=== PATIENT | female | born 1965 | race Hispanic/Latino ===

== ENCOUNTER 2018-04-25 13:40 | Emergency (ER) | payer BC ==
[2018-04-25 13:50] VITALS: BMI 22.6
[2018-04-25 13:54] VITALS: RESP 18; TEMP 98.2
--- NOTE | 2018-04-25 15:00 | ED PDOC ---
Arrival/HPI - General Chief Complaint: Dizziness/Lightheaded Time Seen by Provider: 04/25/18 13:47 Historian: Patient - History of Present Illness Narrative History of Present Illness (Text): 04/25/18 15:03 A 52 year old female, whose past medical history includes, x 2, menopause, anxiety and depression, presents to the emergency department complaining of dizziness starting earlier today. Patient reports she was in [employer] when she suddenly began experiencing a room-spinning sensation dizziness. Patient denies any chest pain, shortness of breath, or any other complaints at this time. Also, patient mentions she takes Prozac and Klonopin. No PMD Past Medical History - Provider Review Nursing Documentation Reviewed: Yes - Infectious Disease Hx of Infectious Diseases: None - Reproductive Menopause: Yes Currently : No - Psychiatric Hx Anxiety: Yes Hx Depression: Yes Hx Substance Use: No - Surgical History Hx Section: Yes (x2) - Anesthesia Hx Anesthesia: No Hx Anesthesia Reactions: No Hx Malignant Hyperthermia: No Family/Social History - Physician Review Nursing Documentation Reviewed: Yes Family/Social History: No Known Family HX Smoking Status: Never Smoked Hx Alcohol Use: Yes Frequency of alcohol use: Socially Hx Substance Use: No Allergies/Home Meds Allergies/Adverse Reactions: Allergies No Known Allergies Allergy (Verified 04/25/18 14:13) Home Medications: Home Meds Medication Instructions Recorded Confirmed Fluoxetine HCl [Prozac] 80 mg PO DAILY 04/25/18 04/25/18 clonazePAM [Klonopin] 1 mg PO HS 04/25/18 04/25/18 Review of Systems - Physician Review All systems were reviewed & negative as marked: Yes - Review of Systems Respiratory: absent: SOB Cardiovascular: absent: Chest Pain Neurological: Dizziness (room-spinning sensation.) Physical Exam Vital Signs Reviewed: Yes Vital Signs Temp Pulse Resp BP Pulse Ox 04/25/18 13:41 98.2 F 78 18 127/80 96 Temperature: Afebrile Blood Pressure: Normal Pulse: Regular Respiratory Rate: Normal Appearance: Positive for: Well-Appearing, Non-Toxic, Comfortable Pain Distress: None Mental Status: Positive for: Alert and Oriented X 3 - Systems Exam Head: Present: Atraumatic, Normocephalic Pupils: Present: PERRL Extroacular Muscles: Present: EOMI Conjunctiva: Present: Normal Mouth: Present: Moist Mucous Membranes Pharnyx: Present: Normal Neck: Present: Normal Range of Motion. No: JVD Respiratory/Chest: Present: Clear to Auscultation, Good Air Exchange. No: Respiratory Distress, Accessory Muscle Use Cardiovascular: Present: Regular Rate and Rhythm, Normal S1, S2. No: Murmurs Abdomen: No: Tenderness, Distention, Peritoneal Signs Back: Present: Normal Inspection Upper Extremity: Present: Normal Inspection. No: Cyanosis, Edema Lower Extremity: Present: Normal Inspection. No: Edema Neurological: Present: GCS=15, CN II-XII Intact, Speech Normal Skin: Present: Warm, Dry, Normal Color. No: Rashes Psychiatric: Present: Alert, Oriented x 3, Normal Insight, Normal Concentration Medical Decision Making ED Course and Treatment: 04/25/18 15:05 Impression: 52 year old female with room-spinning sensation dizziness. No acute findings on physical exam. Plan: -- EKG -- Chest X-ray -- Labs -- Urinalysis -- Reassess and disposition Progress Notes: 04/25/18 16:17 Lab results show patient has a UTI. Patient states she wants to go home because she feels better. Will be prescribed Meclizine and Cipro to treat UTI, and will follow-up with a physician. - RAD Interpretation Radiology Orders: 04/25/18 14:16 CHEST PORTABLE [RAD] Stat - Scribe Statement The provider has reviewed the documentation as recorded by the Scribe Riaz Ha Provider Scribe Attestation: All medical record entries made by the Scribe were at my direction and personally dictated by me. I have reviewed the chart and agree that the record accurately reflects my personal performance of the history, physical exam, medical decision making, and the department course for this patient. I have also personally directed, reviewed, and agree with the discharge instructions and disposition. Disposition/Present on Arrival - Present on Arrival Any Indicators Present on Arrival: No History of DVT/PE: No History of Uncontrolled Diabetes: No Urinary Catheter: No History of Decub. Ulcer: No History Surgical Site Infection Following: None - Disposition Have Diagnosis and Disposition been Completed?: Yes Diagnosis: Dizziness, UTI (urinary tract infection) Disposition: HOME/ ROUTINE Disposition Time: 16:35 Condition: IMPROVED Discharge Instructions (ExitCare): Urinary Tract Infection, Adult (DC), Dizziness, Nonvertigo, (DC) Prescriptions: Meclizine [Meclizine*] 25 mg PO Q8 #15 tab Nitrofurantoin Macrocrystals [Macrobid] 100 mg PO BID #14 cap [place] [facility] [place] - Follow up with primary [facility] at [facility] [Outside] - Follow up with primary Forms: [employer] (Turkish)
[2018-04-25 15:06] LABS: ALB/GLOB RATIO 1.5 (1.1-1.8); ALT/SGPT 30 U/L (7-56); AST/SGOT 23 U/L (14-36); BLOOD UREA NITROGEN 14 mg/dL (7-21); GFR NON-AFRICAN AMERICAN > 60
[2018-04-25 15:16] LABS: TROPONIN I < 0.01 ng/mL
[2018-04-25 15:23] LABS: BASO # 0.01 K/mm3 (0.0-2.0); BASO % 0.2 % (0.0-3.0); EOS # 0.2 (0.0-0.7); EOS % 3.7 % (1.5-5.0); HEMOGLOBIN 12.1 g/dL (12.0-16.0); LYMPH # 1.7 (1.2-3.4); LYMPH % 31.1 % (22.0-35.0); MEAN CELL VOLUME 90.7 fl (80.0-105.0); MEAN CORPUSCULAR HEMOGLOBIN 29.5 pg (25.0-35.0); MEAN CORPUSCULAR HGB CONC 32.5 g/dl (31.0-37.0); MEAN PLATELET VOLUME 9.3 fl (7.0-11.0); MONO # 0.5 (0.1-0.6); MONO % 8.3 % (1.0-6.0); RBC 4.1 10^6/uL (3.5-6.1); RED CELL DISTRIBUTION WIDTH 13.5 % (11.5-14.5); WHITE BLOOD COUNT 5.4 10^3/uL (4.5-11.0)
[2018-04-25 15:50] LABS: PH,URINE 6.5 (4.7-8.0); URINE BILIRUBIN NEGATIVE (NEGATIVE); URINE BLOOD NEGATIVE (NEGATIVE); URINE GLUCOSE (UA) NEGATIVE (NEGATIVE); URINE LEUKOCYTE ESTERASE TRACE Leu/uL (NEGATIVE); URINE PROTEIN NEGATIVE mg/dL (<30 mg/dL); URINE UROBILINOGEN 0.2 E.U./dL (<1 E.U./dL)
[2018-04-25 15:53] LABS: URINE APPEARANCE CLEAR (CLEAR); URINE COLOR YELLOW (YELLOW)
[2018-04-25] MEDS ORDERED: cefTRIAXone 1 gm 1 GM/100 ML BAG IVPB STA (16:13)
[2018-04-25 16:29] VITALS: BP 123/74; PULSE 80; O2SAT 98
--- NOTE | 2018-04-25 18:02 | RAD ---
Date of service: 04/25/2018 HISTORY: dizziness COMPARISON: No prior. FINDINGS: LUNGS: No active pulmonary disease. PLEURA: No significant pleural effusion identified, no pneumothorax apparent. CARDIOVASCULAR: No aortic atherosclerotic calcification present. Normal cardiac size. No pulmonary vascular congestion. OSSEOUS STRUCTURES: No significant abnormalities. VISUALIZED UPPER ABDOMEN: Normal. OTHER FINDINGS: None. IMPRESSION: No active disease.
--- NOTE | 2018-04-25 22:36 | CARD ---
APPROVED REPORT Date of service: 04/25/2018 EKG Measurement Heart [id number] <Conclusion> Sinus rhythm with short NV Otherwise normal ECG
== END 2018-04-25 16:35 | disposition home or self-care (01) ==
LOC: ED 13:40
DX: N39.0 Urinary tract infection, site not specified (principal); R42 Dizziness and giddiness